=== PATIENT | female | born 1950 | race Caucasian/White ===

== ENCOUNTER 2019-05-29 21:09 | Emergency (ER) | payer MEDICARE ==
[~2019-05-29] VITALS: Ht 154.9 cm; Wt 74.8 kg
[2019-05-29 21:49] LABS: BASOPHILS ABSOLUTE AUTO 0.04 K/mm3 (0.00-0.23); BASOPHILS PERCENT AUTO 1 % (0-2); EOSINOPHILS ABSOLUTE AUTO 0.23 K/mm3 (0.00-0.68); EOSINOPHILS PERCENT AUTO 3 % (0-6); Hematocrit 43.6 % (33.0-51.0); Hemoglobin 13.8 g/dL (11.5-16.0); IMMATURE GRAN ABSOLUTE AUTO 0.05 K/mm3 (0.00-0.10); IMMATURE GRAN PERCENT AUTO 1 % (0-1); LYMPHOCYTES ABSOLUTE AUTO 2.36 K/mm3 (0.84-5.20); LYMPHOCYTES PERCENT AUTO 28 % (21-46); MONOCYTES ABSOLUTE AUTO 0.69 K/mm3 (0.16-1.47); MONOCYTES PERCENT AUTO 8 % (4-13); Mean Corpuscular HGB 30.7 pg (26.0-34.0); Mean Corpuscular HGB Conc 31.7 g/dL (31.5-36.5); Mean Corpuscular Volume 97 fL (80-100); Mean Platelet Volume 10.5 fL (9.1-12.4); NEUTROPHILS ABSOLUTE AUTO 5.08 K/mm3 (1.96-9.15); NEUTROPHILS PERCENT AUTO 60 % (41-73); Platelet Count 207 K/mm3 (150-400); RDW Coefficient Variation 13.3 % (11.7-14.2); RDW Standard Deviation 47.7 fL (35.1-46.3); Red Blood Cell Count 4.49 M/mm3 (3.80-5.20); White Blood Cell Count 8.45 K/mm3 (4.00-11.30)
[2019-05-29 22:09] LABS: Alanine Aminotransfer (ALT/SGP 31 U/L (12-78); Albumin, Blood 3.7 g/dL (3.4-5.0); Albumin/Globulin Ratio 0.9 (0.8-1.8); Alk Phos 102 U/L (50-136); Anion Gap 7 mmol/L (6-16); Aspartate Aminotrans (AST/SGOT 29 U/L (12-37); Bilirubin, Total 0.4 mg/dL (0.1-1.0); Blood Urea Nitrogen 21 mg/dL (8-24); Bun/Creatinine Ratio 37.6 (12.0-20.0); CO2, Blood 26 mmol/L (21-32); Calcium, Blood 8.8 mg/dL (8.5-10.1); Chloride, Blood 106 mmol/L (98-108); Creatinine, Blood 0.56 mg/dL (0.40-1.00); Globulin, Blood 3.9 g/dL (2.2-4.0); Glomerular Filtration Rate >60 (60-); Glucose, Blood 156 mg/dL (70-99); Magnesium, Blood 1.4 mg/dL (1.6-2.4); Potassium, Blood 4.1 mmol/L (3.5-5.5); Sodium, Blood 139 mmol/L (136-145); Total Protein, Blood 7.6 g/dL (6.4-8.2); Troponin I <0.015 ng/mL (0.000-0.040)
[2019-05-29] MEDS ORDERED: ELIQUIS2.5 MG (22:34)
[2019-05-29] MEDS ORDERED: METO25ER (22:34)
[2019-05-29] MEDS ORDERED: ALLEGRA ALLERG180 MG (22:39)
[2019-05-29] MEDS ORDERED: Aspir 8181 MG PO (22:40)
[2019-05-29] MEDS ORDERED: BENA20 PO (22:41)
[2019-05-29] MEDS ORDERED: BIOTIN10000 MC1 PO (22:41)
[2019-05-29] MEDS ORDERED: Cod Liver Oil1 EAC2 (22:42)
[2019-05-29] MEDS ORDERED: D3 DOTS2000 UNIT (22:42)
[2019-05-29] MEDS ORDERED: Cinnamon500 MG PO (22:42)
[2019-05-29] MEDS ORDERED: TOCO1000 PO (22:43)
[2019-05-29] MEDS ORDERED: FLAX PO (22:43)
[2019-05-29] MEDS ORDERED: Garlic1 EAC1 PO (22:43)
[2019-05-29] MEDS ORDERED: PEPPERMINT OIL (22:44)
[2019-05-29] MEDS ORDERED: NIAC500 PO (22:44)
[2019-05-29] MEDS ORDERED: B Complex-Foli1 EACH (22:45)
[2019-05-29] MEDS ORDERED: TURMERIC 500 M1 EACH PO (22:45)
[2019-05-29] MEDS ORDERED: MAGNESIUM OXID400 M2 PO (23:31)
== END 2019-05-29 23:51 | disposition home or self-care (01) ==
LOC: ER 21:09
PROVIDERS: Physician Assistant
DX: E83.42 Hypomagnesemia (principal); I48.91 Unspecified atrial fibrillation; I48.92 Unspecified atrial flutter; Z88.6 Allergy status to analgesic agent; Z88.5 Allergy status to narcotic agent; Z91.018 Allergy to other foods; Z79.899 Other long term (current) drug therapy; Z79.82 Long term (current) use of aspirin
CPT/HCPCS: 71046; 80053; 83735; 84484; 85025; 93005; 93010; 99285-25